=== PATIENT | male | born 1950 | race Two or more races ===

== ENCOUNTER 2016-05-27 09:39 | Inpatient (IN) | payer OTHER ==
[~2016-05-27] VITALS: Ht 175.3 cm; Wt 57.6 kg
[2016-05-27 10:32] LABS: Basophils # (auto) 0 uL; Basophils % (auto) 0.3 % (0.0-2.0); Eosinophils # (auto) 0.1 uL; Eosinophils % (auto) 1.2 % (0.0-7.0); Hematocrit 29.4 % (41.0-53.0); Hemoglobin 9.9 g/dL (13.5-17.5); Lymphocytes # (auto) 0.5 uL; Lymphocytes % (auto) 5.3 % (10.0-50.0); Mean Corpuscular Hemoglobin 32.2 pg (28.0-32.0); Mean Corpuscular Hgb Conc. 33.5 g/dL (32.0-36.0); Mean Corpuscular Volume 95.9 fL (80.0-100.0); Mean Platelet Volume 10.2 fL (7.4-10.4); Monocytes # (auto) 0.7 uL; Monocytes % (auto) 7.2 % (0.0-12.0); Neutrophils # (auto) 8.1 uL; Platelet Count (auto) 255 10^3/uL (140-450); Red Cell Distribution Width 15.7 % (11.6-16.0); SUSPECT VIEW TRANSMISSION; White Blood Cell 9.4 10^3/uL (4.4-10.8)
[2016-05-27 10:51] LABS: INR 1.07 (0.9-1.15); Partial Thromboplastin Time 27.3 sec (22.64-33.71)
[2016-05-27 11:01] LABS: Albumin 2.2 g/dL (3.4-5.0); BUN/Creatinine Ratio 11.5; Bilirubin, Total 0.4 mg/dL (0.2-1.0); Calcium 7.2 mg/dL (8.5-10.1); Total Protein 6.4 g/dL (6.4-8.2)
[2016-05-27] MEDS ORDERED: SODIUM CHLORIDE 0.9% 1,000 ML IV ONE (11:07)
[2016-05-27] MEDS ORDERED: PIPERACILLIN-TAZOB 3.375GM 100 ML IV ONE (11:15)
[2016-05-27] MEDS ORDERED: metroNIDAZOLE 500MG/100ML 100 ML IV ONE (11:15)
[2016-05-27 11:26] LABS: B-Type Natriuretic Peptide 1429.89 pg/mL (0-100); Temperature: 21.2 C (20.0-25.0)
[2016-05-27] MEDS ORDERED: AZITHROMYCIN 500MG/D5W 250ML 250 ML IV ONE (11:45)
[2016-05-27] MEDS ORDERED: ATOR40TA52 PO (13:58)
[2016-05-27] MEDS ORDERED: cefTRIAXone 1GM/50ML D5W 50 ML IV ONE (14:15)
[2016-05-27] MEDS ORDERED: DEXTROSE (50%) 50ML SYRG IV PRN (14:15)
[2016-05-27] MEDS ORDERED: MORPHINE SULF INJ 2 MG/ML SYRINGE 1ML IV PRN ×2 (14:30)
[2016-05-27] MEDS ORDERED: ONDANSETRON HCL 4 MG/2 ML VIAL IV PRN (14:30)
[2016-05-27] MEDS ORDERED: NITROGLYCERIN 0.4 MG SL TAB SL PRN (14:30)
[2016-05-27] MEDS ORDERED: DOCUSATE SOD 100 MG CAP PO PRN (14:30)
[2016-05-27] MEDS ORDERED: ACETAMINOPHEN 325 MG TAB PO PRN (14:30)
[2016-05-27] MEDS ORDERED: TEMAZEPAM 15 MG CAP PO PRN (14:30)
[2016-05-27] MEDS ORDERED: NIFEdipine ER 30 MG TAB PO ONE (14:45)
[2016-05-27] MEDS ORDERED: MULTIPLE VITAMIN TAB PO ONE (14:45)
[2016-05-27] MEDS ORDERED: FAMOTIDINE 20 MG TAB PO ONE (14:45)
[2016-05-27 16:40] VITALS: BP 151/81
[2016-05-27] MEDS: ACCU-CHEK COMFORT CURVE STRIP VI SCH ×2 (17:15→22:35)
[2016-05-27] MEDS: DIFLUPREDNATE 0.05% RIGHTEYE SCH ×2 (17:16→22:00)
[2016-05-27] MEDS: InsuLIN REG 1unit/0.01ml Soln (100units/ml) SC SCH ×2 (17:17→22:32)
[2016-05-27] MEDS ORDERED: PATIENTS OWN MEDICATION RIGHTEYE SCH ×2 (18:00)
[2016-05-27] MEDS: Boost Glucose Control 8 Ounces PO SCH ×2 (18:17→22:26)
[2016-05-27] MEDS: IPRATROPIUM BROM 0.5 MG/2.5ML INH SOL NEB SCH (19:46)
[2016-05-27] MEDS: ALBUTEROL SULF 2.5 MG/0.5ML(0.5%) NEB SOLN NEB SCH (19:46)
[2016-05-27 20:00] VITALS: BP 153/98
[2016-05-27] MEDS: SODIUM CHLOR 0.9% PF (SALINE LOCK) 10ML VIAL IV SCH (22:26)
[2016-05-27] MEDS: FAMOTIDINE 20 MG TAB PO SCH (22:27)
[2016-05-27] MEDS: METOPROLOL TARTRATE 50 MG TAB PO SCH (22:27)
[2016-05-27] MEDS: ATORVASTATIN 20 MG TAB PO SCH (22:27)
[2016-05-27] MEDS: INSULIN DETEMIR(LEVEMIR) 1unit/0.01ml Soln (100units/ml) SC SCH (22:29)
[2016-05-27] MEDS: DORZOLAMIDE HCL 2% OPTH(EYE) SOL 10ML RIGHTEYE SCH (22:35)
[2016-05-28] VITALS (7 sets, daily range): BP systolic 95–161; BP diastolic 65–91
[2016-05-28] MEDS: ALBUTEROL SULF 2.5 MG/0.5ML(0.5%) NEB SOLN NEB SCH ×4 (00:30→19:37)
[2016-05-28] MEDS: IPRATROPIUM BROM 0.5 MG/2.5ML INH SOL NEB SCH ×4 (00:30→19:38)
[2016-05-28 05:44] LABS: Basophils # (auto) 0 uL; Basophils % (auto) 0.1 % (0.0-2.0); Eosinophils # (auto) 0 uL; Eosinophils % (auto) 0.1 % (0.0-7.0); Hematocrit 29.5 % (41.0-53.0); Hemoglobin 9.4 g/dL (13.5-17.5); Lymphocytes # (auto) 0.6 uL; Lymphocytes % (auto) 5.6 % (10.0-50.0); Mean Corpuscular Hemoglobin 30.9 pg (28.0-32.0); Mean Corpuscular Hgb Conc. 32.1 g/dL (32.0-36.0); Mean Corpuscular Volume 96.5 fL (80.0-100.0); Mean Platelet Volume 9.9 fL (7.4-10.4); Monocytes # (auto) 0.7 uL; Monocytes % (auto) 6.2 % (0.0-12.0); Neutrophils # (auto) 9.8 uL; Platelet Count (auto) 259 10^3/uL (140-450); Red Cell Distribution Width 15.4 % (11.6-16.0); White Blood Cell 11.2 10^3/uL (4.4-10.8)
[2016-05-28] MEDS: DIFLUPREDNATE 0.05% RIGHTEYE SCH ×4 (06:00→22:19)
[2016-05-28] MEDS: Boost Glucose Control 8 Ounces PO SCH ×4 (06:00→22:17)
[2016-05-28] MEDS: SODIUM CHLOR 0.9% PF (SALINE LOCK) 10ML VIAL IV SCH ×3 (06:00→22:17)
[2016-05-28] MEDS: DORZOLAMIDE HCL 2% OPTH(EYE) SOL 10ML RIGHTEYE SCH ×3 (06:01→22:19)
[2016-05-28 06:03] LABS: Calcium 6.8 mg/dL (8.5-10.1); Potassium 4.1 mmol/L (3.5-5.1)
[2016-05-28 06:12] LABS: BUN/Creatinine Ratio 11.1; Bilirubin, Total 0.3 mg/dL (0.2-1.0); Total Protein 6.5 g/dL (6.4-8.2)
[2016-05-28] MEDS: ACCU-CHEK COMFORT CURVE STRIP VI SCH ×4 (06:25→22:20)
[2016-05-28] MEDS: InsuLIN REG 1unit/0.01ml Soln (100units/ml) SC SCH ×4 (06:28→22:00)
[2016-05-28] MEDS: INSULIN DETEMIR(LEVEMIR) 1unit/0.01ml Soln (100units/ml) SC SCH ×2 (06:28→22:00)
[2016-05-28] MEDS: cefTRIAXone 1GM/50ML D5W 50 ML IV SCH (09:13)
[2016-05-28] MEDS: METOPROLOL TARTRATE 50 MG TAB PO SCH ×2 (09:33→22:18)
[2016-05-28] MEDS: NIFEdipine ER 30 MG TAB PO SCH (09:33)
[2016-05-28] MEDS: AZITHROMYCIN 500MG/D5W 250ML 250 ML IV SCH (09:37)
[2016-05-28] MEDS: MULTIPLE VITAMIN TAB PO SCH (09:37)
[2016-05-28] MEDS: FAMOTIDINE 20 MG TAB PO SCH ×2 (09:37→22:18)
[2016-05-28] MEDS ORDERED: NIFEdipine ER 30 MG TAB PO SCH (10:00)
[2016-05-28] MEDS ORDERED: CLOP75TA41 PO (19:00)
[2016-05-28] MEDS ORDERED: NIFE30TA76 PO (19:02)
[2016-05-28] MEDS ORDERED: INSLANTI SC (19:02)
[2016-05-28] MEDS ORDERED: METO-158 PO (19:02)
[2016-05-28] MEDS ORDERED: HALOPERIDOL LACTATE 5 MG/ML INJ VIAL IM ONE (21:30)
[2016-05-28] MEDS: ATORVASTATIN 20 MG TAB PO SCH (22:18)
[2016-05-29] VITALS: BP 153/88
[2016-05-29] MEDS: IPRATROPIUM BROM 0.5 MG/2.5ML INH SOL NEB SCH ×4 (01:03→18:00)
[2016-05-29] MEDS: ALBUTEROL SULF 2.5 MG/0.5ML(0.5%) NEB SOLN NEB SCH ×4 (01:03→18:00)
[2016-05-29 03:50] VITALS: BP 162/104
[2016-05-29 05:18] LABS: Basophils # (auto) 0 uL; Eosinophils # (auto) 0 uL; Eosinophils % (auto) 0.3 % (0.0-7.0); Hematocrit 26.3 % (41.0-53.0); Hemoglobin 8.8 g/dL (13.5-17.5); Lymphocytes # (auto) 0.6 uL; Lymphocytes % (auto) 5.9 % (10.0-50.0); Mean Corpuscular Hemoglobin 31.7 pg (28.0-32.0); Mean Corpuscular Hgb Conc. 33.3 g/dL (32.0-36.0); Mean Corpuscular Volume 95.2 fL (80.0-100.0); Mean Platelet Volume 9.9 fL (7.4-10.4); Monocytes # (auto) 0.8 uL; Monocytes % (auto) 8.2 % (0.0-12.0); Neutrophils # (auto) 8.8 uL; Neutrophils % (auto) 85.6 % (37.0-80.0); Platelet Count (auto) 249 10^3/uL (140-450); White Blood Cell 10.3 10^3/uL (4.4-10.8)
[2016-05-29] MEDS: Boost Glucose Control 8 Ounces PO SCH ×4 (05:40→22:00)
[2016-05-29] MEDS: SODIUM CHLOR 0.9% PF (SALINE LOCK) 10ML VIAL IV SCH ×3 (05:40→22:53)
[2016-05-29] MEDS: DORZOLAMIDE HCL 2% OPTH(EYE) SOL 10ML RIGHTEYE SCH ×3 (05:41→21:28)
[2016-05-29] MEDS: DIFLUPREDNATE 0.05% RIGHTEYE SCH ×4 (05:42→21:29)
[2016-05-29 05:48] LABS: Calcium 6.5 mg/dL (8.5-10.1); Phosphorus 8.1 mg/dL (2.6-4.90); Potassium 4.3 mmol/L (3.5-5.1)
[2016-05-29] MEDS: INSULIN DETEMIR(LEVEMIR) 1unit/0.01ml Soln (100units/ml) SC SCH ×3 (06:19→22:00)
[2016-05-29] MEDS: ACCU-CHEK COMFORT CURVE STRIP VI SCH ×4 (06:39→22:00)
[2016-05-29] MEDS: InsuLIN REG 1unit/0.01ml Soln (100units/ml) SC SCH ×4 (06:39→22:00)
[2016-05-29 07:53] VITALS: BP 110/83
[2016-05-29] MEDS: cefTRIAXone 1GM/50ML D5W 50 ML IV SCH (10:02)
[2016-05-29] MEDS: AZITHROMYCIN 500MG/D5W 250ML 250 ML IV SCH (10:03)
[2016-05-29] MEDS: HYDROcodone-ACET 5/325MG TAB PO PRN ×2 (10:04→21:28)
[2016-05-29] MEDS: FAMOTIDINE 20 MG TAB PO SCH ×2 (10:04→21:28)
[2016-05-29] MEDS: METOPROLOL TARTRATE 50 MG TAB PO SCH ×2 (10:04→21:30)
[2016-05-29] MEDS: MULTIPLE VITAMIN TAB PO SCH (10:04)
[2016-05-29] MEDS: NIFEdipine ER 30 MG TAB PO SCH (10:05)
[2016-05-29] MEDS ORDERED: LIDOCAINE 2%HCL (LOCAL ANESTH.) INJ 20ML MDV ONE (10:36)
[2016-05-29 12:00] VITALS: BP 182/76
[2016-05-29] MEDS ORDERED: HALOPERIDOL LACTATE 5 MG/ML INJ VIAL IM ONE (12:00)
[2016-05-29 13:24] VITALS: BP 125/93
[2016-05-29 14:10] LABS: Body Fluid Polymorphonuclear 90 %
[2016-05-29] MEDS ORDERED: EPOETIN ALFA 10,000 UNIT/1 ML VIAL IV ONE (14:45)
[2016-05-29 16:00] VITALS: BP 122/66
[2016-05-29] MEDS ORDERED: SODIUM FERR GLUC 62.5MG/5ML 125 MG in SODIUM CHL 0.9% 100 ML IV ONE (16:00)
[2016-05-29] MEDS: ATORVASTATIN 20 MG TAB PO SCH (21:27)
[2016-05-30] VITALS (8 sets, daily range): BP systolic 94–142; BP diastolic 56–89
[2016-05-30] MEDS: ALBUTEROL SULF 2.5 MG/0.5ML(0.5%) NEB SOLN NEB SCH ×4 (00:02→18:52)
[2016-05-30] MEDS: IPRATROPIUM BROM 0.5 MG/2.5ML INH SOL NEB SCH ×4 (00:02→18:52)
[2016-05-30] MEDS: Boost Glucose Control 8 Ounces PO SCH ×4 (06:00→22:48)
[2016-05-30 06:03] LABS: Basophils # (auto) 0 uL; Basophils % (auto) 0.4 % (0.0-2.0); DEFINITIVE VIEW TRANSMISSION; Eosinophils # (auto) 0.1 uL; Eosinophils % (auto) 1.5 % (0.0-7.0); Hematocrit 25.6 % (41.0-53.0); Hemoglobin 8.4 g/dL (13.5-17.5); Lymphocytes # (auto) 1.2 uL; Lymphocytes % (auto) 15.5 % (10.0-50.0); Mean Corpuscular Hemoglobin 31.2 pg (28.0-32.0); Mean Corpuscular Hgb Conc. 32.7 g/dL (32.0-36.0); Mean Corpuscular Volume 95.6 fL (80.0-100.0); Mean Platelet Volume 9.4 fL (7.4-10.4); Monocytes # (auto) 0.8 uL; Monocytes % (auto) 10.1 % (0.0-12.0); Neutrophils # (auto) 5.4 uL; Neutrophils % (auto) 72.5 % (37.0-80.0); Platelet Count (auto) 206 10^3/uL (140-450); Red Cell Distribution Width 14.7 % (11.6-16.0); White Blood Cell 7.5 10^3/uL (4.4-10.8)
[2016-05-30] MEDS: DIFLUPREDNATE 0.05% RIGHTEYE SCH ×4 (06:38→22:24)
[2016-05-30] MEDS: DORZOLAMIDE HCL 2% OPTH(EYE) SOL 10ML RIGHTEYE SCH ×3 (06:39→22:23)
[2016-05-30] MEDS: ACCU-CHEK COMFORT CURVE STRIP VI SCH ×4 (06:39→22:40)
[2016-05-30] MEDS: InsuLIN REG 1unit/0.01ml Soln (100units/ml) SC SCH ×4 (06:39→22:00)
[2016-05-30] MEDS: INSULIN DETEMIR(LEVEMIR) 1unit/0.01ml Soln (100units/ml) SC SCH (06:39)
[2016-05-30] MEDS: SODIUM CHLOR 0.9% PF (SALINE LOCK) 10ML VIAL IV SCH ×3 (06:40→22:24)
[2016-05-30 06:41] LABS: Potassium 3.7 mmol/L (3.5-5.1)
[2016-05-30 06:52] LABS: BUN/Creatinine Ratio 8.8; Calcium 6.6 mg/dL (8.5-10.1)
[2016-05-30] MEDS: cefTRIAXone 1GM/50ML D5W 50 ML IV SCH (09:04)
[2016-05-30] MEDS: SODIUM FERR GLUC 62.5MG/5ML 125 MG in SODIUM CHL 0.9% 100 ML IV SCH (10:50)
[2016-05-30] MEDS: MULTIPLE VITAMIN TAB PO SCH (10:51)
[2016-05-30] MEDS: METOPROLOL TARTRATE 50 MG TAB PO SCH ×2 (10:51→22:00)
[2016-05-30] MEDS: FAMOTIDINE 20 MG TAB PO SCH ×2 (10:51→22:23)
[2016-05-30] MEDS: NIFEdipine ER 30 MG TAB PO SCH (10:52)
[2016-05-30] MEDS: AZITHROMYCIN 500MG/D5W 250ML 250 ML IV SCH (12:20)
[2016-05-30] MEDS: HALOPERIDOL LACTATE 5 MG/ML INJ VIAL IM PRN (19:30)
[2016-05-30] MEDS: ATORVASTATIN 20 MG TAB PO SCH (22:23)
[2016-05-31] MEDS: ALBUTEROL SULF 2.5 MG/0.5ML(0.5%) NEB SOLN NEB SCH ×2 (00:29→06:22)
[2016-05-31] MEDS: IPRATROPIUM BROM 0.5 MG/2.5ML INH SOL NEB SCH ×2 (00:29→06:22)
[2016-05-31 05:16] VITALS: BP 116/81
[2016-05-31] MEDS: DORZOLAMIDE HCL 2% OPTH(EYE) SOL 10ML RIGHTEYE SCH (06:22)
[2016-05-31] MEDS: DIFLUPREDNATE 0.05% RIGHTEYE SCH (06:22)
[2016-05-31 06:24] LABS: Basophils # (auto) 0 uL; Basophils % (auto) 0.3 % (0.0-2.0); DEFINITIVE VIEW TRANSMISSION; Eosinophils # (auto) 0.2 uL; Eosinophils % (auto) 1.7 % (0.0-7.0); Hematocrit 24.6 % (41.0-53.0); Hemoglobin 8.1 g/dL (13.5-17.5); Lymphocytes # (auto) 1.3 uL; Lymphocytes % (auto) 14.2 % (10.0-50.0); Mean Corpuscular Hemoglobin 31.4 pg (28.0-32.0); Mean Corpuscular Volume 95.2 fL (80.0-100.0); Mean Platelet Volume 9.8 fL (7.4-10.4); Monocytes # (auto) 1.1 uL; Monocytes % (auto) 11.9 % (0.0-12.0); Neutrophils # (auto) 6.7 uL; Neutrophils % (auto) 71.9 % (37.0-80.0); Platelet Count (auto) 235 10^3/uL (140-450); Red Cell Distribution Width 15.3 % (11.6-16.0); White Blood Cell 9.3 10^3/uL (4.4-10.8)
[2016-05-31] MEDS: SODIUM CHLOR 0.9% PF (SALINE LOCK) 10ML VIAL IV SCH (06:24)
[2016-05-31] MEDS: Boost Glucose Control 8 Ounces PO SCH (06:41)
[2016-05-31] MEDS: ACCU-CHEK COMFORT CURVE STRIP VI SCH (06:41)
[2016-05-31] MEDS: InsuLIN REG 1unit/0.01ml Soln (100units/ml) SC SCH (06:42)
[2016-05-31 06:45] LABS: BUN/Creatinine Ratio 8.4; Calcium 6.7 mg/dL (8.5-10.1); Potassium 3.7 mmol/L (3.5-5.1)
[2016-05-31] MEDS: cefTRIAXone 1GM/50ML D5W 50 ML IV SCH (09:00)
[2016-05-31 09:14] VITALS: BP 130/71
[2016-05-31] MEDS: SODIUM FERR GLUC 62.5MG/5ML 125 MG in SODIUM CHL 0.9% 100 ML IV SCH (10:00)
[2016-05-31] MEDS: METOPROLOL TARTRATE 50 MG TAB PO SCH (10:00)
[2016-05-31] MEDS: NIFEdipine ER 30 MG TAB PO SCH (10:00)
[2016-05-31] MEDS: FAMOTIDINE 20 MG TAB PO SCH (10:00)
[2016-05-31] MEDS: MULTIPLE VITAMIN TAB PO SCH (10:00)
[2016-05-31] MEDS ORDERED: EPOETIN ALFA 10,000 UNIT/1 ML VIAL IV ONE (10:15)
[2016-05-31] MEDS ORDERED: INSLANTI SC (11:05)
[2016-05-31] MEDS ORDERED: AMOX250C3 PO (11:05)
[2016-05-31] MEDS: HALOPERIDOL LACTATE 5 MG/ML INJ VIAL IM PRN (11:34)
[2016-05-31 17:27] VITALS: BP 153/77
== END 2016-05-31 18:50 | disposition home or self-care (01) | DRG 70 ==
LOC: EDAGE 09:39 → ER 09:44 → TELE 09:45 → DOU IN ICU 16:11 → TELE-WESTW 05-30 21:36
PROVIDERS: ADMIT Internal Medicine; ATTEND Hospitalist
PROC: 5A1D60Z (ICD-10-PCS; principal; 2016-05-29)
PROC: 0W993ZZ Drainage of Right Pleural Cavity, Percutaneous Approach (ICD-10-PCS; 2016-05-29)
DX: G93.41 Metabolic encephalopathy (principal); E43 Unspecified severe protein-calorie malnutrition; J18.9 Pneumonia, unspecified organism; J96.21 Acute and chronic respiratory failure with hypoxia; N18.6 End stage renal disease; I50.32 Chronic diastolic (congestive) heart failure; R65.10 Systemic inflammatory response syndrome (SIRS) of non-infectious origin without acute organ dysfunction; I13.2 Hypertensive heart and chronic kidney disease with heart failure and with stage 5 chronic kidney disease, or end stage renal disease; Z68.1 Body mass index [BMI] 19.9 or less, adult; D63.8 Anemia in other chronic diseases classified elsewhere; E11.22 Type 2 diabetes mellitus with diabetic chronic kidney disease; E11.21 Type 2 diabetes mellitus with diabetic nephropathy; E83.51 Hypocalcemia; E78.5 Hyperlipidemia, unspecified; H40.9 Unspecified glaucoma; J45.909 Unspecified asthma, uncomplicated; B96.89 Other specified bacterial agents as the cause of diseases classified elsewhere; E11.319 Type 2 diabetes mellitus with unspecified diabetic retinopathy without macular edema; E11.649 Type 2 diabetes mellitus with hypoglycemia without coma; H54.0 Blindness, both eyes; Z99.81 Dependence on supplemental oxygen; Z99.2 Dependence on renal dialysis; Z83.3 Family history of diabetes mellitus; Z79.2 Long term (current) use of antibiotics; Z79.899 Other long term (current) drug therapy
CPT/HCPCS: 36415; 36600; 71010; 76604; 76942; 80048; 80053; 82805; 82945; 82962; 83036; 83540; 83550; 83605; 83615; 83880; 83986; 84100; 84157; 84484; 85025; 85379; 85610; 85730; 87040; 87070; 87077; 87081; 87186; 87205; 89051; 90935; 93005; 93306; 94640; 96365; 96367; 96375; 97001; 97116; 97530; 99291; A4565; J0696; J0885; J1815; J2405; J2543; J3490

== ENCOUNTER 2016-06-01 06:46 | Inpatient (IN) | payer OTHER ==
[~2016-06-01] VITALS: Ht 170.2 cm; Wt 61.5 kg
[~2016-06-01 06:46] MED LIST: AMOX250C3 PO; ATOR40TA52 PO; CLOP75TA41 PO; INSLANTI SC; METO-158 PO; NIFE30TA76 PO
[2016-06-01 07:28] LABS: Hematocrit 29.4 % (41.0-53.0); Hemoglobin 9.8 g/dL (13.5-17.5); Mean Corpuscular Hemoglobin 31.9 pg (28.0-32.0); Mean Corpuscular Hgb Conc. 33.3 g/dL (32.0-36.0); Mean Corpuscular Volume 96.1 fL (80.0-100.0); Mean Platelet Volume 9.5 fL (7.4-10.4); Platelet Count (auto) 302 10^3/uL (140-450); Red Cell Distribution Width 15.5 % (11.6-16.0); White Blood Cell 9.4 10^3/uL (4.4-10.8)
[2016-06-01 07:33] LABS: Metamyelocytes % 0; Myelocytes % 0; Promyelocytes % 0; Reactive Lymphocytes 0
[2016-06-01 07:44] LABS: Albumin 2.1 g/dL (3.4-5.0); Alkaline Phosphatase 121 U/L (45-117); Anion Gap 14 (5-15); Aspartate Aminotransferase 39 U/L (15-37); BUN/Creatinine Ratio 8.5; Bilirubin, Total 0.5 mg/dL (0.2-1.0); Blood Urea Nitrogen 56 mg/dL (7-18); Calcium 7.5 mg/dL (8.5-10.1); Carbon Dioxide 25 mmol/L (21-32); Chloride 96 mmol/L (98-107); GFR African American 11 mL/min; GFR Non-African American 9 mL/min; Glucose 266 mg/dL (74-106); Magnesium 2.4 mg/dL (1.6-2.6); Potassium 4.3 mmol/L (3.5-5.1); Sodium 135 mmol/L (136-145); Total Protein 6.5 g/dL (6.4-8.2)
[2016-06-01 08:08] LABS: Platelet Clumps FEW; Platelet Estimate Adequate
[2016-06-01 08:47] LABS: B-Type Natriuretic Peptide 2386.89 pg/mL (0-100); Temperature: 21.5 C (20.0-25.0)
[2016-06-01] MEDS ORDERED: cloNIDine HCL 0.1 MG TAB PO ONE (09:45)
[2016-06-01] MEDS ORDERED: PIPERACILLIN-TAZOB 3.375GM 100 ML IV ONE (10:00)
[2016-06-01] MEDS ORDERED: AZITHROMYCIN 500MG/D5W 250ML 250 ML IV ONE (10:00)
[2016-06-01] MEDS ORDERED: MORPHINE SULF INJ 2 MG/ML SYRINGE 1ML IV PRN ×2 (10:15)
[2016-06-01] MEDS ORDERED: ACETAMINOPHEN 500 MG TAB PO PRN (10:15)
[2016-06-01] MEDS ORDERED: DEXTROSE (50%) 50ML SYRG IV PRN (10:15)
[2016-06-01] MEDS ORDERED: NITROGLYCERIN 0.4 MG SL TAB SL PRN (10:15)
[2016-06-01] MEDS ORDERED: TEMAZEPAM 15 MG CAP PO PRN (10:15)
[2016-06-01] MEDS ORDERED: InsuLIN REG 1unit/0.01ml Soln (100units/ml) IV ONE (10:15)
[2016-06-01] MEDS ORDERED: LACTULOSE 20Gm/30ML SOLN PO PRN ×2 (10:15)
[2016-06-01] MEDS ORDERED: OSELTAMIVIR 75 MG CAP PO ONE (10:15)
[2016-06-01] MEDS ORDERED: LORazepam 0.5 MG TAB PO PRN (10:15)
[2016-06-01] MEDS ORDERED: HYDROcodone-ACET 5/325MG TAB PO PRN (10:15)
[2016-06-01] MEDS ORDERED: VANCOMYCIN PER PHARMACY 0 MG IV SCH (10:15)
[2016-06-01] MEDS ORDERED: ALBUTEROL SULF 2.5 MG/0.5ML(0.5%) NEB SOLN NEB PRN (10:15)
[2016-06-01] MEDS ORDERED: LEVOFLOXACIN 250MG 50 ML IV ONE (10:15)
[2016-06-01] MEDS ORDERED: PROMETHAZINE HCL 25 MG/ML 1ML IV PRN (10:15)
[2016-06-01] MEDS ORDERED: ENOXAPARIN SOD 30 MG/0.3 ML SYRINGE SC ONE (10:30)
[2016-06-01] MEDS: ALBUTEROL SULF 2.5 MG/0.5ML(0.5%) NEB SOLN NEB SCH ×2 (11:06→19:52)
[2016-06-01] MEDS: IPRATROPIUM BROM 0.5 MG/2.5ML INH SOL NEB SCH ×2 (11:06→19:52)
[2016-06-01] MEDS: InsuLIN REG 1unit/0.01ml Soln (100units/ml) SC SCH ×2 (11:18→18:00)
[2016-06-01] MEDS: ACCU-CHEK COMFORT CURVE STRIP VI SCH ×2 (11:18→18:00)
[2016-06-01 12:10] LABS: Cholesterol 90 mg/dL (<200); HDL Cholesterol 35 mg/dL (40-59); LDL Cholesterol 56 mg/dL (<100); Triglycerides 78 mg/dL (<150)
[2016-06-01] MEDS ORDERED: LABETALOL HCL 5 MG/ML 4ML SYRINGE IV PRN (12:45)
[2016-06-01] MEDS ORDERED: VANCOMYCIN 1GM/250ML D5W 250 ML IV ONE ×2 (13:00→14:00)
[2016-06-01] MEDS: LABETALOL HCL 5 MG/ML 4ML SYRINGE IV PRN ×2 (15:03→18:38)
[2016-06-01 18:56] LABS: Basophils # (auto) 0 uL; DEFINITIVE VIEW TRANSMISSION; Eosinophils # (auto) 0 uL; Eosinophils % (auto) 0.1 % (0.0-7.0); Hematocrit 26.4 % (41.0-53.0); Hemoglobin 8.5 g/dL (13.5-17.5); Lymphocytes # (auto) 0.7 uL; Lymphocytes % (auto) 6.5 % (10.0-50.0); Mean Corpuscular Hemoglobin 30.8 pg (28.0-32.0); Mean Corpuscular Hgb Conc. 32.1 g/dL (32.0-36.0); Mean Corpuscular Volume 95.9 fL (80.0-100.0); Mean Platelet Volume 9.1 fL (7.4-10.4); Monocytes # (auto) 0.9 uL; Monocytes % (auto) 9.4 % (0.0-12.0); Neutrophils # (auto) 8.4 uL; Platelet Count (auto) 284 10^3/uL (140-450); Red Cell Distribution Width 15.2 % (11.6-16.0)
[2016-06-01 21:23] LABS: Urine Bilirubin Negative (Negative); Urine Blood TRACE /uL (Negative); Urine Color Yellow (Yellow); Urine Ketone Negative (Negative); Urine Nitrite Negative (Negative); Urine RBC 2 /hpf (0 - 3); Urine Squamous Epithelial Cell FEW /hpf (<5); Urine Urobilinogen Normal (Negative)
[2016-06-01 21:34] LABS: Urine Glucose 2+ mg/dL (Normal)
[2016-06-01] MEDS: ATORVASTATIN 20 MG TAB PO SCH (21:40)
[2016-06-01] MEDS: METOPROLOL TARTRATE 50 MG TAB PO SCH (21:40)
[2016-06-01] MEDS: OSELTAMIVIR 30 MG CAP PO SCH (21:40)
[2016-06-01] MEDS ORDERED: OSELTAMIVIR 75 MG CAP PO SCH (22:00)
[2016-06-01 23:31] VITALS: BP 177/86
[2016-06-02] MEDS: ALBUTEROL SULF 2.5 MG/0.5ML(0.5%) NEB SOLN NEB SCH ×4 (00:14→19:29)
[2016-06-02] MEDS: IPRATROPIUM BROM 0.5 MG/2.5ML INH SOL NEB SCH ×4 (00:14→19:29)
[2016-06-02] MEDS: InsuLIN REG 1unit/0.01ml Soln (100units/ml) SC SCH ×4 (01:05→18:00)
[2016-06-02] MEDS: ACCU-CHEK COMFORT CURVE STRIP VI SCH ×4 (01:05→18:00)
[2016-06-02] MEDS: LABETALOL HCL 5 MG/ML 4ML SYRINGE IV PRN ×3 (01:19→10:59)
[2016-06-02 05:30] LABS: Basophils # (auto) 0 uL; Basophils % (auto) 0.3 % (0.0-2.0); Eosinophils # (auto) 0.1 uL; Eosinophils % (auto) 0.7 % (0.0-7.0); Hematocrit 26.6 % (41.0-53.0); Hemoglobin 8.7 g/dL (13.5-17.5); Lymphocytes # (auto) 1.4 uL; Lymphocytes % (auto) 13.4 % (10.0-50.0); Mean Corpuscular Hemoglobin 31.6 pg (28.0-32.0); Mean Corpuscular Hgb Conc. 32.7 g/dL (32.0-36.0); Mean Corpuscular Volume 96.6 fL (80.0-100.0); Mean Platelet Volume 9.3 fL (7.4-10.4); Monocytes # (auto) 1.2 uL; Monocytes % (auto) 11.6 % (0.0-12.0); Neutrophils # (auto) 7.9 uL; Platelet Count (auto) 303 10^3/uL (140-450); Red Cell Distribution Width 15.8 % (11.6-16.0); White Blood Cell 10.6 10^3/uL (4.4-10.8)
[2016-06-02 05:59] LABS: Albumin 1.8 g/dL (3.4-5.0); BUN/Creatinine Ratio 8.6
[2016-06-02 06:02] LABS: Bilirubin, Total 0.3 mg/dL (0.2-1.0); Total Protein 5.7 g/dL (6.4-8.2)
[2016-06-02 06:32] LABS: B-Type Natriuretic Peptide 2935.74 pg/mL (0-100); Temperature: 21.5 C (20.0-25.0)
[2016-06-02] MEDS: OSELTAMIVIR 30 MG CAP PO SCH (08:24)
[2016-06-02] MEDS ORDERED: ENALAPRIL MALEATE 2.5 MG TAB PO SCH (10:00)
[2016-06-02] MEDS ORDERED: INSULIN GLARGINE 5 UNIT SC SCH (10:00)
[2016-06-02] MEDS ORDERED: LEVOFLOXACIN 250MG 50 ML IV SCH ×2 (10:00)
[2016-06-02] MEDS ORDERED: PATIENTS OWN MEDICATION (Atorvastatin Calcium 1 TAB) PO SCH ×2 (10:00)
[2016-06-02] MEDS: ASPirin 81 mg TAB PO SCH (10:00)
[2016-06-02] MEDS: INSULIN DETEMIR(LEVEMIR) 1unit/0.01ml Soln (100units/ml) SC SCH (10:37)
[2016-06-02] MEDS: NITROGLYCERIN 0.2MG/HR TOPICAL PATCH TD SCH (10:42)
[2016-06-02] MEDS: ENOXAPARIN SOD 30 MG/0.3 ML SYRINGE SC SCH (10:44)
[2016-06-02] MEDS: METOPROLOL TARTRATE 50 MG TAB PO SCH ×2 (10:49→20:24)
[2016-06-02] MEDS: CLOPIDOGREL BISULFATE 75 MG TAB PO SCH (10:50)
[2016-06-02] MEDS: NIFEdipine ER 30 MG TAB PO SCH (10:50)
[2016-06-02] MEDS ORDERED: VANCOMYCIN 1GM/250ML D5W 250 ML IV ONE (14:00)
[2016-06-02 18:00] VITALS: BP 177/103
[2016-06-02 18:24] VITALS: BP 177/103
[2016-06-02 19:32] VITALS: BP 173/102
[2016-06-02] MEDS: ATORVASTATIN 20 MG TAB PO SCH (20:24)
[2016-06-02 23:45] VITALS: BP 167/93
[2016-06-03] MEDS: ALBUTEROL SULF 2.5 MG/0.5ML(0.5%) NEB SOLN NEB SCH ×4 (00:03→18:28)
[2016-06-03] MEDS: IPRATROPIUM BROM 0.5 MG/2.5ML INH SOL NEB SCH ×4 (00:03→18:28)
[2016-06-03 04:30] VITALS: BP 166/87
[2016-06-03] MEDS: ACCU-CHEK COMFORT CURVE STRIP VI SCH ×4 (05:11→17:40)
[2016-06-03 05:52] LABS: Basophils # (auto) 0 uL; Basophils % (auto) 0.4 % (0.0-2.0); Eosinophils # (auto) 0.2 uL; Eosinophils % (auto) 2.2 % (0.0-7.0); Hematocrit 26.4 % (41.0-53.0); Hemoglobin 8.6 g/dL (13.5-17.5); Lymphocytes # (auto) 1.3 uL; Lymphocytes % (auto) 13.4 % (10.0-50.0); Mean Corpuscular Hemoglobin 31.2 pg (28.0-32.0); Mean Corpuscular Hgb Conc. 32.4 g/dL (32.0-36.0); Mean Corpuscular Volume 96.3 fL (80.0-100.0); Neutrophils # (auto) 7.3 uL; Platelet Count (auto) 343 10^3/uL (140-450); Red Cell Distribution Width 15.8 % (11.6-16.0); White Blood Cell 9.9 10^3/uL (4.4-10.8)
[2016-06-03] MEDS: InsuLIN REG 1unit/0.01ml Soln (100units/ml) SC SCH ×4 (06:00→17:43)
[2016-06-03 06:03] LABS: Potassium 4.2 mmol/L (3.5-5.1)
[2016-06-03 06:05] LABS: Partial Thromboplastin Time 29.6 sec (22.64-33.71)
[2016-06-03 06:07] LABS: Magnesium 2.4 mg/dL (1.6-2.6)
[2016-06-03 06:17] LABS: INR 1.17 (0.9-1.15)
[2016-06-03 07:53] VITALS: BP 174/92
[2016-06-03] MEDS: NIFEdipine ER 30 MG TAB PO SCH (08:17)
[2016-06-03] MEDS: ENOXAPARIN SOD 30 MG/0.3 ML SYRINGE SC SCH (08:18)
[2016-06-03] MEDS: ASPirin 81 mg TAB PO SCH (08:18)
[2016-06-03] MEDS: METOPROLOL TARTRATE 50 MG TAB PO SCH ×2 (08:18→22:51)
[2016-06-03] MEDS: CLOPIDOGREL BISULFATE 75 MG TAB PO SCH (08:18)
[2016-06-03] MEDS: INSULIN DETEMIR(LEVEMIR) 1unit/0.01ml Soln (100units/ml) SC SCH (10:00)
[2016-06-03 12:00] VITALS: BP 146/79
[2016-06-03] MEDS: NITROGLYCERIN 0.2MG/HR TOPICAL PATCH TD SCH (12:00)
[2016-06-03 15:45] VITALS: BP 118/64
[2016-06-03 20:00] VITALS: BP 111/63
[2016-06-03] MEDS: ATORVASTATIN 20 MG TAB PO SCH (22:50)
[2016-06-03] MEDS: DORZOLAMIDE HCL 2% OPTH(EYE) SOL 10ML EACHEYE SCH (22:51)
[2016-06-03] MEDS: DUREZOL OP SCH (22:52)
[2016-06-04] VITALS (9 sets, daily range): BP systolic 119–153; BP diastolic 60–85
[2016-06-04] MEDS: IPRATROPIUM BROM 0.5 MG/2.5ML INH SOL NEB SCH ×4 (00:10→18:59)
[2016-06-04] MEDS: ALBUTEROL SULF 2.5 MG/0.5ML(0.5%) NEB SOLN NEB SCH ×4 (00:10→18:59)
[2016-06-04 05:11] LABS: Basophils # (auto) 0 uL; Basophils % (auto) 0.3 % (0.0-2.0); Eosinophils # (auto) 0.1 uL; Eosinophils % (auto) 0.6 % (0.0-7.0); Hematocrit 27.2 % (41.0-53.0); Hemoglobin 8.9 g/dL (13.5-17.5); Lymphocytes # (auto) 1.3 uL; Lymphocytes % (auto) 11.4 % (10.0-50.0); Mean Corpuscular Hemoglobin 31.2 pg (28.0-32.0); Mean Corpuscular Hgb Conc. 32.5 g/dL (32.0-36.0); Mean Platelet Volume 8.8 fL (7.4-10.4); Monocytes # (auto) 1.3 uL; Monocytes % (auto) 11.1 % (0.0-12.0); Neutrophils # (auto) 8.9 uL; Neutrophils % (auto) 76.6 % (37.0-80.0); Platelet Count (auto) 376 10^3/uL (140-450); Red Cell Distribution Width 15.4 % (11.6-16.0); White Blood Cell 11.6 10^3/uL (4.4-10.8)
[2016-06-04 05:31] LABS: Partial Thromboplastin Time 28.7 sec (22.64-33.71); Prothrombin Time 12.2 sec (9.37-12.3)
[2016-06-04 05:36] LABS: INR 1.18 (0.9-1.15)
[2016-06-04 05:38] LABS: Calcium 6.7 mg/dL (8.5-10.1); Potassium 3.7 mmol/L (3.5-5.1)
[2016-06-04 05:52] LABS: BUN/Creatinine Ratio 8.8; Magnesium 2.5 mg/dL (1.6-2.6)
[2016-06-04] MEDS: ACCU-CHEK COMFORT CURVE STRIP VI SCH ×4 (06:00→18:09)
[2016-06-04] MEDS: DUREZOL OP SCH (06:00)
[2016-06-04] MEDS: InsuLIN REG 1unit/0.01ml Soln (100units/ml) SC SCH ×4 (06:00→18:06)
[2016-06-04] MEDS: DORZOLAMIDE HCL 2% OPTH(EYE) SOL 10ML EACHEYE SCH ×3 (06:54→22:18)
[2016-06-04] MEDS ORDERED: POVIDONE IODINE 10 % TOPICAL OINT 30GM TOP ONE ×2 (07:24→10:39)
[2016-06-04] MEDS ORDERED: ceFAZolin 1GM VL ONE ×2 (07:24→10:21)
[2016-06-04] MEDS ORDERED: HEPARIN SODIUM (PORCINE) 5000 UNITS/ML 1ML VIAL ONE (07:25)
[2016-06-04] MEDS ORDERED: HEPARIN 1,000 UNITS/ml 1ML VIAL ONE (07:25)
[2016-06-04] MEDS ORDERED: ceFAZolin 1GM/50ML D5W 50 ML IV ONE (07:26)
[2016-06-04] MEDS ORDERED: LIDOCAINE 1% HCL (LOCAL ANESTH.) INJ 20ML MDV ONE (08:46)
[2016-06-04] MEDS ORDERED: BUPIVACAINE W/ EPINEPH 0.25% INJ 50ML MDV ONE (09:53)
[2016-06-04] MEDS ORDERED: BUPIVACAINE 0.25% INJ 50ML VIAL ONE (09:53)
[2016-06-04] MEDS ORDERED: LIDOCAINE W/ EPINEPHRINE 1% 20ML VIAL ONE (09:53)
[2016-06-04] MEDS ORDERED: fentaNYL CITRATE 100 MCG/2 ML VL ONE (10:04)
[2016-06-04] MEDS ORDERED: PROPOFOL 10 MG/ML 20 ML IV ONE (10:04)
[2016-06-04] MEDS ORDERED: ROCURONIUM 10MG/ML 10ML VIAL IV ONE (10:05)
[2016-06-04] MEDS ORDERED: LIDOCAINE HCL 1%(LOCAL ANESTH.) INJ 50ML MDV IJ ONE (10:06)
[2016-06-04] MEDS ORDERED: HEPARIN 1,000 UNITS/ml 1ML VIAL XX ONE (10:20)
[2016-06-04] MEDS ORDERED: HEPARIN SODIUM (PORCINE) 5000 UNITS/ML 1ML VIAL XX ONE (10:20)
[2016-06-04 10:51] LABS: Temperature: 22.5 C (20.0-25.0)
[2016-06-04] MEDS ORDERED: LACTULOSE 20Gm/30ML SOLN PO PRN (11:00)
[2016-06-04] MEDS ORDERED: ACETAMINOPHEN 500 MG TAB PO PRN (11:00)
[2016-06-04] MEDS ORDERED: HYDROcodone-ACET 5/325MG TAB PO PRN (11:00)
[2016-06-04] MEDS ORDERED: fentaNYL CITRATE 100 MCG/2 ML VL IV ONE (11:00)
[2016-06-04] MEDS ORDERED: hydrALAZINE HCL 20 MG/ML VL IV PRN (11:00)
[2016-06-04] MEDS ORDERED: LORazepam 0.5 MG TAB PO PRN (11:00)
[2016-06-04] MEDS ORDERED: DEXTROSE (50%) 50ML SYRG IV PRN (11:00)
[2016-06-04] MEDS ORDERED: ALBUTEROL SULF 2.5 MG/0.5ML(0.5%) NEB SOLN NEB PRN (11:00)
[2016-06-04] MEDS ORDERED: PROMETHAZINE HCL 25 MG/ML 1ML IV PRN (11:00)
[2016-06-04] MEDS ORDERED: VANCOMYCIN PER PHARMACY 0 MG IV SCH (11:00)
[2016-06-04] MEDS ORDERED: ONDANSETRON HCL 4 MG/2 ML VIAL IV ONE (11:00)
[2016-06-04] MEDS ORDERED: MORPHINE SULF INJ 2 MG/ML SYRINGE 1ML IV PRN (11:00)
[2016-06-04] MEDS ORDERED: ePHEDrine SULFATE 50 MG/ML AMP IV PRN (11:00)
[2016-06-04] MEDS ORDERED: SODIUM CHL 0.9% 1000 ML BAG XX ONE (12:00)
[2016-06-04] MEDS ORDERED: EPOETIN ALFA 10,000 UNIT/1 ML VIAL IV ONE (12:00)
[2016-06-04] MEDS ORDERED: [UNRECOGNIZED DRUG - CODE] IV (12:11)
[2016-06-04] MEDS: PATIENTS OWN MEDICATION RIGHTEYE SCH ×6 (12:24→22:17)
[2016-06-04] MEDS ORDERED: VANCOMYCIN 1GM/250ML D5W 250 ML IV ONE (16:00)
[2016-06-04] MEDS ORDERED: METOPROLOL TARTRATE 50 MG TAB PO SCH (22:00)
[2016-06-04] MEDS ORDERED: ATORVASTATIN 20 MG TAB PO SCH (22:00)
[2016-06-05] MEDS ORDERED: ASPirin 81 mg TAB PO SCH (10:00)
[2016-06-05] MEDS ORDERED: ENOXAPARIN SOD 30 MG/0.3 ML SYRINGE SC SCH (10:00)
[2016-06-05] MEDS ORDERED: NIFEdipine ER 30 MG TAB PO SCH (10:00)
[2016-06-05] MEDS ORDERED: CLOPIDOGREL BISULFATE 75 MG TAB PO SCH (10:00)
[2016-06-05] MEDS ORDERED: INSULIN DETEMIR(LEVEMIR) 1unit/0.01ml Soln (100units/ml) SC SCH (10:00)
== END 2016-06-04 22:45 | disposition home health service (06) | DRG 91 ==
LOC: EDBD 06:46 → ER 06:49 → TELE 06:50 → DOU IN ICU 06-02 17:58
PROVIDERS: ADMIT Internal Medicine; ATTEND Internal Medicine
PROC: 5A1D60Z (ICD-10-PCS; 2016-06-04)
PROC: 05H633Z Insertion of Infusion Device into Left Subclavian Vein, Percutaneous Approach (ICD-10-PCS; principal; 2016-06-04 10:06)
DX: G92 Toxic encephalopathy (principal); J96.90 Respiratory failure, unspecified, unspecified whether with hypoxia or hypercapnia; N18.6 End stage renal disease; R78.81 Bacteremia; I13.2 Hypertensive heart and chronic kidney disease with heart failure and with stage 5 chronic kidney disease, or end stage renal disease; E11.22 Type 2 diabetes mellitus with diabetic chronic kidney disease; B96.89 Other specified bacterial agents as the cause of diseases classified elsewhere; E78.5 Hyperlipidemia, unspecified; H40.9 Unspecified glaucoma; D64.9 Anemia, unspecified; E87.70 Fluid overload, unspecified; B95.5 Unspecified streptococcus as the cause of diseases classified elsewhere; I25.10 Atherosclerotic heart disease of native coronary artery without angina pectoris; F03.90 Unspecified dementia, unspecified severity, without behavioral disturbance, psychotic disturbance, mood disturbance, and anxiety; I50.9 Heart failure, unspecified; Z99.2 Dependence on renal dialysis; Z83.3 Family history of diabetes mellitus; Z68.21 Body mass index [BMI] 21.0-21.9, adult
CPT/HCPCS: 36415; 70450; 71010; 80048; 80053; 80061; 80202; 80320; 81001; 82140; 82550; 82607; 82746; 82962; 83036; 83605; 83735; 83880; 84443; 84484; 85007; 85025; 85027; 85049; 85610; 85652; 85730; 86850; 86900; 86901; 87040; 87081; 87086; 87400; 93005; 93886; 94640; 94761; 96365; 96366; 96367; 96372; 96375; 97001; G0434; G9035; J0690; J0885; J1642; J1815; J2001; J2704; J3490